=== PATIENT | male | born 1990 | race Caucasian/White ===

== ENCOUNTER 2018-09-26 14:39 | Emergency (ER) | payer OTHER ==
[~2018-09-26] VITALS: Ht 180.3 cm; Wt 90.0 kg
[2018-09-26] MEDS ORDERED: CRUTCHES MC (16:51)
[2018-09-26 16:55] VITALS: BP 128/70; PULSE 78; TEMP 98.7
== END 2018-09-26 16:55 | disposition home or self-care (01) ==
LOC: COL.ER 14:39 → EDBD 14:40 → COL.ER 14:40
DX: S89.91XA Unspecified injury of right lower leg, initial encounter (principal); M17.11 Unilateral primary osteoarthritis, right knee; X50.0XXA Overexertion from strenuous movement or load, initial encounter; Y93.61 Activity, american tackle football

== ENCOUNTER 2019-02-12 00:58 | Emergency (ER) | payer OTHER ==
[~2019-02-12] VITALS: Ht 182.9 cm; Wt 93.2 kg
[~2019-02-12 00:58] MED LIST: CRUTCHES MC
[2019-02-12 01:28] VITALS: TEMP 98.4
[2019-02-12 03:26] LABS: COLLECTION METHOD CLEAN CATCH
[2019-02-12 03:33] LABS: PH 7 (5-8); SQUAMOUS EPITHELIAL None Seen /hpf; URINE APPEARANCE Clear; URINE BACTERIA None Seen /hpf; URINE BILIRUBIN Negative (NEGATIVE); URINE BLOOD Negative (NEGATIVE); URINE COLOR Colorless; URINE GLUCOSE Negative (NEGATIVE); URINE KETONE Negative (NEGATIVE); URINE LEUKOCYTE ESTERASE Negative (NEGATIVE); URINE NITRATE Negative (NEGATIVE); URINE PROTEIN(semi-quant) Negative (NEGATIVE); URINE RBC 0-2 /hpf; URINE UROBILINOGEN Negative (NEGATIVE)
[2019-02-12] MEDS ORDERED: NORCO 325 MG-51 TAB PO (04:42)
[2019-02-12 05:20] VITALS: BP 142/83; PULSE 91
== END 2019-02-12 05:20 | disposition home or self-care (01) ==
LOC: COL.ER 00:58
PROVIDERS: Emergency Medicine
DX: N50.812 Left testicular pain (principal); Z98.890 Other specified postprocedural states
CPT/HCPCS: J2270

== ENCOUNTER 2019-05-07 09:09 | Emergency (ER) | payer OTHER ==
[~2019-05-07] VITALS: Ht 182.9 cm; Wt 88.6 kg
[~2019-05-07 09:09] MED LIST changes: +NORCO 325 MG-51 TAB PO
[2019-05-07 09:14] VITALS: TEMP 97.7
[2019-05-07] MEDS ORDERED: CLEOCIN HCL300 MG PO (10:03)
[2019-05-07] MEDS ORDERED: AMOXICILLIN875 MG PO (10:03)
[2019-05-07 10:33] VITALS: BP 148/88; PULSE 62
== END 2019-05-07 10:41 | disposition home or self-care (01) ==
LOC: COL.ER 09:09
DX: L03.213 Periorbital cellulitis (principal)
CPT/HCPCS: J1100